=== PATIENT | male | born 1955 | race Caucasian/White ===

== ENCOUNTER 2019-06-08 10:48 | Observation (INO) ==
[2019-06-08] MEDS ORDERED: Aspirin 81 MG TAB.CHEW PO ONE (11:19)
--- NOTE | 2019-06-08 11:21 | Emergency Department Note ---
Disposition Clinical Impression: Chest pain Qualifiers: Chest pain type: unspecified Qualified Code(s): R07.9 - Chest pain, unspecified Disposition: Admitted As Inpatient Condition: Good Referrals: Arun Us MD [Non-Partnered Physician] - Forms: ED Satisfaction Letter Time of Disposition: 12:39 Chest Pain HPI - General Chief Complaint: ED Chest Pain Stated Complaint: Chest Pain Time Seen by Provider: 06/08/19 11:01 Source: patient Mode of arrival: ambulatory Limitations: no limitations Vital Signs Reviewed: Yes Nursing Notes Reviewed: Yes - History of Present Illness HPI Narrative: Patient is a 63-year-old male who is presenting with chest pain. Patient has known history of CAD status post stenting 2 rectally 10 years ago, hypertension, hyperlipidemia and diabetes. Patient states that starting last night around 2029, he began to have pressure in the left side of his chest without radiation, he states that at times this pain is exertional. No positional symptoms. He has had associated nausea without vomiting, no diaphoresis, no associated shortness of breath. He has no leg swelling, history of congestive heart failure. He denies abdominal pain. No recent fevers, cough, chills or sputum production. He states this feels somewhat similar to his chest pain 10 years ago when he required stenting, which was found during a stress test. Severity scale (1-10): 4 - Related Data Allergies Allergy/AdvReac Type Severity Reaction Status Date / Time No Known Allergies Allergy Verified 05/26/15 07:36 All systems ED: reviewed and negative except as stated. Review of Systems: As Per HPI Constitutional: Denies: fever, chills ENT ED: Denies: congestion Cardiovascular: Reports: chest pain. Denies: palpitations, dyspnea on exertion, syncope Respiratory: Denies: cough, dyspnea, wheezes Gastrointestinal: Reports: nausea. Denies: abdominal pain, vomiting, diarrhea Genitourinary: Denies: urgency, dysuria Musculoskeletal: Denies: back pain Integumentary: Denies: rash Neurological: Denies: headache, weakness, confusion Endocrine: Denies: fatigue Chest Pain PMH - Past Medical History Medical history: Reports: diabetes, hyperlipidemia, hypertension, myocardial infarction Psychiatric history: Reports: no psych history - Social History Smoking Status: Former smoker Alcohol use: Reports: none Drug use: Reports: none Physical Exam General: Conversant. No apparent distress. Follow commands. Appears stated age. Neck: No JVD. Trachea midline. Neck supple. Eyes: PERRL. No scleral icterus. HENT: Normocephalic and atraumatic. Moist mucus membranes. Cardiovascular: Regular rate and rhythm. Normal S1 and S2. No murmurs appreciated. Normal capillary refill. Extremities well perfused with 2+ distal pulses bilaterally. No edema. Pulmonary: Normal and equal breath sounds bilaterally, anteriorly and posteriorly. No wheezes, rales, or rhonchi. Not in respiratory distress. Speaks in full sentences. Abdomen: Soft, nondistended, without tenderness. No bruits or masses. No guarding or rebound. Neuro: Alert and oriented x3. No slurred speech. No focal deficits noted. Skin: No rashes noted on visualized skin. Musculoskeletal: No bony abnormalities visualized. Moves all extremities. Psych: Normal mood. Pleasant. Makes appropriate eye contact. - General Limitations: no limitations General appearance: alert, in no apparent distress Course Vital Signs Temperature 98.1 F 06/08/19 10:49 Pulse Rate 69 06/08/19 10:49 Respiratory Rate 18 06/08/19 10:49 Blood Pressure 156/78 06/08/19 10:49 O2 Sat by Pulse Oximetry 91 06/08/19 10:49 Temperature 98.1 F 06/08/19 11:05 Pulse Rate 67 06/08/19 11:40 Respiratory Rate 16 06/08/19 11:40 Blood Pressure 139/79 06/08/19 11:40 O2 Sat by Pulse Oximetry 92 06/08/19 11:40 Oxygen Delivery Oxygen Delivery Room Air Chest Pain - [facility] Narrative Medical decision making narrative: Patient is a 63-year-old male who is presenting with chest pain. No history of CAD status post stenting 2 approximately 2008, hypertension, hyperlipidemia as well as diabetes. On arrival, patient is in no acute distress, states he is having chest pain rated 2 out of 10, to take his baby aspirin this morning. On initial presentation, EKG shows no acute ischemic changes. He was given 2 additional episodes aspirins to equate to 364 mg today. Vital signs otherwise within normal limits. Laboratory work was performed and reviewed with the patient including CBC, BMP and troponin which are all within normal limits. Chest x-ray shows old rib fractures without acute intracardiac or pulmonary proc ess. Patient this point in time as her main stable in the ER. We will be admitting the patient for ACS rule out at this time. Patient was admitted to the hospitalist service by Dr. Magallanes. - Medical Records Medical records reviewed: Yes I reviewed the patient's medical records. - Lab Data Lab results reviewed: Yes I reviewed the patient's lab results. Result diagrams: 06/08/19 11:11 06/08/19 11:11 Lab Results 06/08/19 06/08/19 06/08/19 Range/Units 11:11 11:11 11:11 WBC 10.5 (4.3-11.1) K/mcL RBC 4.46 (4.19-5.50) M/mcL Hgb 12.8 L (12.9-16.9) g/dL Hct 40.8 (37.5-50.1) % MCV 91.5 (83.0-100.0) fL MCH 28.7 (28.0-33.3) pg MCHC 31.4 L (31.6-35.5) g/dL RDW 12.8 (11.5-14.5) % Plt Count 170 (140-400) K/mcL MPV 11.5 (9.4-12.4) fL Immature Gran % 0.6 (0-4) % Seg Neutrophils % 75.3 % Lymphocytes % 11.1 % Monocytes % 12.3 % Eosinophils % 0.3 % Basophils % 0.4 % Neutrophils # 7.9 (1.6-8.9) K/mcL Lymphocytes # 1.2 (0.6-4.6) K/mcL Monocytes # 1.3 (0.0-1.3) K/mcL Eosinophils # 0.0 (0.0-0.6) K/mcL Basophils # 0.0 (0.0-0.2) K/mcL PT 11.4 (9.4-12.1) Seconds INR 1.0 APTT 36.2 H (26.0-36.0) Seconds Sodium 141 (136-145) mEq/L Potassium 4.2 (3.5-5.1) mEq/L Chloride 102 (98-107) mEq/L Carbon Dioxide 29 (23-29) mEq/L BUN 13 (8-23) mg/dL Creatinine 0.74 (0.70-1.30) mg/dL Est GFR ( Amer) > 60 (> 60) Est GFR (Non-Af Amer) > 60 (> 60) BUN/Creatinine Ratio 18 (6-26) Glucose 288 H (70-105) mg/dL Calculated Osmolality 303 H (280-300) Calcium 8.8 (8.6-10.3) mg/dL Troponin I < 0.03 (< 0.04) ng/mL Urine Color (Yellow) Urine Clarity (Clear) Urine pH (5.0-8.0) pH Units Ur Specific [place] (1.010-1.025) Urine Protein (Neg-Trace) mg/dL Urine Glucose (UA) (Normal) mg/dL Urine Ketones (Negative) mg/dL Urine Blood (Negative) Urine Nitrite (Negative) Urine Bilirubin (Negative) Urine Urobilinogen (Normal) mg/dL Ur Leukocyte Esterase (Negative) 06/08/19 Range/Units 12:10 WBC (4.3-11.1) K/mcL RBC (4.19-5.50) M/mcL Hgb (12.9-16.9) g/dL Hct (37.5-50.1) % MCV (83.0-100.0) fL MCH (28.0-33.3) pg MCHC (31.6-35.5) g/dL RDW (11.5-14.5) % Plt Count (140-400) K/mcL MPV (9.4-12.4) fL Immature Gran % (0-4) % Seg Neutrophils % % Lymphocytes % % Monocytes % % Eosinophils % % Basophils % % Neutrophils # (1.6-8.9) K/mcL Lymphocytes # (0.6-4.6) K/mcL Monocytes # (0.0-1.3) K/mcL Eosinophils # (0.0-0.6) K/mcL Basophils # (0.0-0.2) K/mcL PT (9.4-12.1) Seconds INR APTT (26.0-36.0) Seconds Sodium (136-145) mEq/L Potassium (3.5-5.1) mEq/L Chloride (98-107) mEq/L Carbon Dioxide (23-29) mEq/L BUN (8-23) mg/dL Creatinine (0.70-1.30) mg/dL Est GFR ( Amer) (> 60) Est GFR (Non-Af Amer) (> 60) BUN/Creatinine Ratio (6-26) Glucose (70-105) mg/dL Calculated Osmolality (280-300) Calcium (8.6-10.3) mg/dL Troponin I (< 0.04) ng/mL Urine Color Yellow (Yellow) Urine Clarity Clear (Clear) Urine pH 6.0 (5.0-8.0) pH Units Ur Specific [place] > 1.030 H (1.010-1.025) Urine Protein Negative (Neg-Trace) mg/dL Urine Glucose (UA) >=1000 H (Normal) mg/dL Urine Ketones Negative (Negative) mg/dL Urine Blood Negative (Negative) Urine Nitrite Negative (Negative) Urine Bilirubin Negative (Negative) Urine Urobilinogen Normal (Normal) mg/dL Ur Leukocyte Esterase Negative (Negative) - Radiology Data Radiology results reviewed: Yes I reviewed the patient's radiology results. Chest X-Ray 06/08/19 11:45 IMPRESSION: 1. No active pulmonary disease. 2. Old healed left 7th and 8th rib fractures. D/ / Noe Osman MD / Noe Osman MD Interpreting Provider: Noe Osman MD - EKG Data EKG attestation: Yes I reviewed and interpreted this EKG. EKG results narrative: EKG obtained at 1101 with ventricular rate of 67, regular rhythm, borderline left axis deviation, right bundle branch block, no ST segment elevation, depression, Q waves noted in lead 2, 3 and aVF the Q waves are unchanged from old EKG performed in 11/18/2013. Heart Score - Score History: Moderately Suspicious EKG: Non Specific repolarisation Disturbance Age: 45-65 Risk Factors: Equal/Greater than 3 risk factor or history of atherosclerotic disease Troponin: Less than normal limit HEART Score Total: 5
[2019-06-08 11:35] LABS: Basophils % 0.4 %; Eosinophils % 0.3 %; Hematocrit 40.8 % (37.5-50.1); Hemoglobin 12.8 g/dL (12.9-16.9); Immature Granulocytes % 0.6 % (0-4); Lymphocytes # 1.2 K/mcL (0.6-4.6); Lymphocytes % 11.1 %; Mean Corpuscular HGB Conc 31.4 g/dL (31.6-35.5); Mean Corpuscular Hemoglobin 28.7 pg (28.0-33.3); Mean Corpuscular Volume 91.5 fL (83.0-100.0); Mean Platelet Volume 11.5 fL (9.4-12.4); Monocytes # 1.3 K/mcL (0.0-1.3); Monocytes % 12.3 %; Neutrophils # 7.9 K/mcL (1.6-8.9); Platelet Count 170 K/mcL (140-400); Red Blood Count 4.46 M/mcL (4.19-5.50); Red Cell Distribution Width 12.8 % (11.5-14.5); Segmented Neutrophils % 75.3 %; White Blood Count 10.5 K/mcL (4.3-11.1)
[2019-06-08 11:42] LABS: Prothrombin Time 11.4 Seconds (9.4-12.1)
[2019-06-08 11:45] LABS: Activated Partial Thrombo Time 36.2 Seconds (26.0-36.0)
[2019-06-08 12:07] LABS: BUN/Creatinine Ratio 18 (6-26); Blood Urea Nitrogen 13 mg/dL (8-23); Calcium 8.8 mg/dL (8.6-10.3); Carbon Dioxide 29 mEq/L (23-29); Chloride 102 mEq/L (98-107); Glucose 288 mg/dL (70-105); Osmolality,Calculated 303 (280-300); Potassium 4.2 mEq/L (3.5-5.1); Sodium 141 mEq/L (136-145); Troponin I < 0.03 ng/mL (< 0.04); eGFR For African Americans > 60 (> 60); eGFR For Non-African Americans > 60 (> 60)
[2019-06-08 12:28] LABS: Bilirubin,Urine Negative (Negative); Blood,Urine Negative (Negative); Clarity,Urine Clear (Clear); Color,Urine Yellow (Yellow); Glucose,Urine (UA) >=1000 mg/dL (Normal); Ketones,Urine Negative (Negative); Leukocyte Esterase,Urine Negative (Negative); Nitrite,Urine Negative (Negative); Protein,Urine Negative (Neg-Trace); Specific Gravity,Urine > 1.030 (1.010-1.025); Urobilinogen,Urine Normal (Normal)
--- NOTE | 2019-06-08 12:28 | Emergency Department Note ---
Disposition Clinical Impression: Chest pain Qualifiers: Chest pain type: unspecified Qualified Code(s): R07.9 - Chest pain, unspecified Disposition: Admitted As Inpatient Condition: Good Time of Disposition: 12:39 General Adult HPI - General Chief complaint: ED Chest Pain Stated complaint: Chest Pain Time Seen by Provider: 06/08/19 11:01 Source: patient Mode of arrival: ambulatory Limitations: no limitations - History of Present Illness Pain Scale: 4 - Related Data Home Medications Medication Instructions Recorded Confirmed Aspirin 325 mg PO DAILY 06/08/19 06/08/19 Atorvastatin [Lipitor] 40 mg PO HS 06/08/19 06/08/19 Carvedilol [Coreg] 6.25 mg PO BIDWM 06/08/19 06/08/19 Gabapentin [Neurontin] 400 mg PO BID 06/08/19 06/08/19 Glimepiride [Amaryl] 4 mg PO QAM 06/08/19 06/08/19 Insulin Glargine [Lantus] 84 unit SQ HS 06/08/19 06/08/19 Lisinopril [Zestril] 5 mg PO DAILY 06/08/19 06/08/19 metFORMIN [Glucophage] 1,000 mg PO BIDWM 06/08/19 06/08/19 Allergies Allergy/AdvReac Type Severity Reaction Status Date / Time No Known Allergies Allergy Verified 05/26/15 07:36 Constitutional: Denies: fever, chills ENT ED: Denies: congestion Cardiovascular: Reports: chest pain. Denies: palpitations, dyspnea on exertion, syncope Respiratory: Denies: cough, dyspnea, wheezes Gastrointestinal: Reports: nausea. Denies: abdominal pain, vomiting, diarrhea Genitourinary: Denies: urgency, dysuria Musculoskeletal: Denies: back pain Integumentary: Denies: rash Neurological: Denies: headache, weakness, confusion Endocrine: Denies: fatigue Past Medical History - Past Medical History Medical history: Reports: diabetes, hyperlipidemia, hypertension, myocardial infarction Psychiatric history: Reports: no psych history - Social History Smoking Status: Former smoker Smokeless Tobacco Status: No Alcohol use: Reports: none Drug use: Reports: none Physical Exam - General Limitations: no limitations General appearance: alert, in no apparent distress Course Vital Signs Temperature 98.1 F 06/08/19 10:49 Pulse Rate 69 06/08/19 10:49 Respiratory Rate 18 06/08/19 10:49 Blood Pressure 156/78 06/08/19 10:49 O2 Sat by Pulse Oximetry 91 06/08/19 10:49 Temperature 99.2 F 06/08/19 23:11 Pulse Rate 66 06/08/19 23:11 Respiratory Rate 16 06/08/19 23:11 Blood Pressure 133/74 06/08/19 23:11 O2 Sat by Pulse Oximetry 93 06/08/19 23:11 Oxygen Delivery Oxygen Delivery Room Air Medical Decision Making - Lab Data Result diagrams: 06/08/19 11:11 06/08/19 11:11 Lab Results 06/08/19 06/08/19 06/08/19 Range/Units 11:11 11:11 11:11 WBC 10.5 (4.3-11.1) K/mcL RBC 4.46 (4.19-5.50) M/mcL Hgb 12.8 L (12.9-16.9) g/dL Hct 40.8 (37.5-50.1) % MCV 91.5 (83.0-100.0) fL MCH 28.7 (28.0-33.3) pg MCHC 31.4 L (31.6-35.5) g/dL RDW 12.8 (11.5-14.5) % Plt Count 170 (140-400) K/mcL MPV 11.5 (9.4-12.4) fL Immature Gran % 0.6 (0-4) % Seg Neutrophils % 75.3 % Lymphocytes % 11.1 % Monocytes % 12.3 % Eosinophils % 0.3 % Basophils % 0.4 % Neutrophils # 7.9 (1.6-8.9) K/mcL Lymphocytes # 1.2 (0.6-4.6) K/mcL Monocytes # 1.3 (0.0-1.3) K/mcL Eosinophils # 0.0 (0.0-0.6) K/mcL Basophils # 0.0 (0.0-0.2) K/mcL PT 11.4 (9.4-12.1) Seconds INR 1.0 APTT 36.2 H (26.0-36.0) Seconds Sodium 141 (136-145) mEq/L Potassium 4.2 (3.5-5.1) mEq/L Chloride 102 (98-107) mEq/L Carbon Dioxide 29 (23-29) mEq/L BUN 13 (8-23) mg/dL Creatinine 0.74 (0.70-1.30) mg/dL Est GFR ( Amer) > 60 (> 60) Est GFR (Non-Af Amer) > 60 (> 60) BUN/Creatinine Ratio 18 (6-26) Glucose 288 H (70-105) mg/dL Calculated Osmolality 303 H (280-300) Calcium 8.8 (8.6-10.3) mg/dL Troponin I < 0.03 (< 0.04) ng/mL Urine Color (Yellow) Urine Clarity (Clear) Urine pH (5.0-8.0) pH Units Ur Specific [place] (1.010-1.025) Urine Protein (Neg-Trace) mg/dL Urine Glucose (UA) (Normal) mg/dL Urine Ketones (Negative) mg/dL Urine Blood (Negative) Urine Nitrite (Negative) Urine Bilirubin (Negative) Urine Urobilinogen (Normal) mg/dL Ur Leukocyte Esterase (Negative) 06/08/19 Range/Units 12:10 WBC (4.3-11.1) K/mcL RBC (4.19-5.50) M/mcL Hgb (12.9-16.9) g/dL Hct (37.5-50.1) % MCV (83.0-100.0) fL MCH (28.0-33.3) pg MCHC (31.6-35.5) g/dL RDW (11.5-14.5) % Plt Count (140-400) K/mcL MPV (9.4-12.4) fL Immature Gran % (0-4) % Seg Neutrophils % % Lymphocytes % % Monocytes % % Eosinophils % % Basophils % % Neutrophils # (1.6-8.9) K/mcL Lymphocytes # (0.6-4.6) K/mcL Monocytes # (0.0-1.3) K/mcL Eosinophils # (0.0-0.6) K/mcL Basophils # (0.0-0.2) K/mcL PT (9.4-12.1) Seconds INR APTT (26.0-36.0) Seconds Sodium (136-145) mEq/L Potassium (3.5-5.1) mEq/L Chloride (98-107) mEq/L Carbon Dioxide (23-29) mEq/L BUN (8-23) mg/dL Creatinine (0.70-1.30) mg/dL Est GFR ( Amer) (> 60) Est GFR (Non-Af Amer) (> 60) BUN/Creatinine Ratio (6-26) Glucose (70-105) mg/dL Calculated Osmolality (280-300) Calcium (8.6-10.3) mg/dL Troponin I (< 0.04) ng/mL Urine Color Yellow (Yellow) Urine Clarity Clear (Clear) Urine pH 6.0 (5.0-8.0) pH Units Ur Specific [place] > 1.030 H (1.010-1.025) Urine Protein Negative (Neg-Trace) mg/dL Urine Glucose (UA) >=1000 H (Normal) mg/dL Urine Ketones Negative (Negative) mg/dL Urine Blood Negative (Negative) Urine Nitrite Negative (Negative) Urine Bilirubin Negative (Negative) Urine Urobilinogen Normal (Normal) mg/dL Ur Leukocyte Esterase Negative (Negative) Attestation Statement - Attestation Attestation: I examined this patient and my medical decision-making was reviewed with the Resident Physician. I agree with the documented findings, disposition and treatment plan as described except to the extent set forth below. Patient 63-year-old gentleman who presents to the emergency department with chief complaint of chest pain. The patient reports he has prior history of cardiac disease and stated that he started having pain in his chest worse with exertion Physical exam patient is awake alert in no acute distress resting comfortably on the stretcher. Medical decision management EKG showed no evidence of acute ischemic changes initial troponin was negative given the patient's risk factors for cardiac disease patient will be admitted to the hospital for serial cardiac markers I personally supervised and was present for the arias/critical portions of the following procedures completed by the resident:EKG.
--- NOTE | 2019-06-08 14:04 | Electrocardiograph Report ---
[address] [place] [address] Test Date: 2019-06-08 Pat Name: Fitz Gardner Department: [id number] Room: 3B35 Gender: M [employer] Supervisor: : [id number] Requested By: Gwen Taylor Order Number: [id number] Reading MD: Arnulfo Arzola Measurements Intervals [place] Rate: 67 P: 7 FL: 212 QRS: -6 QRSD: 156 T: -15 QT: 440 QTc: 465 Interpretive Statements Sinus rhythm Borderline prolonged FL interval Right bundle branch block Inferior infarct, age indeterminate Electronically Signed On 06-08-2019 14:02:27 EDT by Arnulfo Arzola
[2019-06-08] MEDS ORDERED: Naloxone 0.4 MG/ML INJ IVP PRN (15:36)
[2019-06-08] MEDS ORDERED: Acetaminophen 325 MG TABLET PO PRN (15:36)
[2019-06-08] MEDS ORDERED: Ondansetron 4 MG/2 ML VIAL IVP PRN (15:36)
[2019-06-08] MEDS ORDERED: *HR* HYDROcodone/Acet 5/325 mg TABLET PO PRN (15:36)
[2019-06-08] MEDS ORDERED: Nitroglycerin 0.4 MG TAB.SUBL SL PRN (15:38)
[2019-06-08] MEDS ORDERED: *HR* Dextrose 50 % in Water (Syg) 50 ML SYRINGE IVP PRN (15:40)
[2019-06-08] MEDS ORDERED: Dextrose Gel 15 GM/37.5 ML TUBE PO PRN ×2 (15:40)
[2019-06-08] MEDS ORDERED: D5% in Water 1,000 ML IVC PRN (15:40)
--- NOTE | 2019-06-08 15:45 | Internal Med History&Physical ---
Date of Encounter: 06/08/19 Time of Encounter: 15:45 Internal Medicine - H&P: HPI Chief complaint: Chest pain Admitted From: Emergency Dept Plans for Post Hospital Care: Home History of present illness: Mr. Gardner is a 63 year old male with a known past medical history of hypertension, hyperlipidemia, diabetes and CAD s/p PCI x2 10 yrs ago now he presented to ER with intermittent chest pain located sub sternal and left chest wall region from last 2 days. Patient stated his chest pain is more like pressure, non radiating, 6/10 in severity and associated with some nausea. In the ER his initial troponin was negative. His EKG showed normal sinus rhythm, no acute ST, T changes noticed. He does have incomplete right bundle branch block Past Med Surg Social Fam HX - Past Medical History Medical history: diabetes, hyperlipidemia, hypertension, myocardial infarction Psychiatric history: no psych history - Past Surgical History Additional surgical history: stent x 2 - Social History Smoking Status: Former smoker Smokeless Tobacco Status: No Alcohol use: none Drug use: none - Family History Mother Living Status: Cause of : AR Hx Family Cardiac Disorders: Yes (AR) Hx Family Endocrine Disorder: (DM) Father Living Status: Cause of : MRSA infection Hx Family Respiratory Disorders: Yes (COPD) Internal Medicine - H&P: Meds Aspirin 325 mg PO DAILY 06/08/19 [History] Atorvastatin [Lipitor] 40 mg PO HS 06/08/19 [History] Carvedilol [Coreg] 6.25 mg PO BIDWM 06/08/19 [History] Gabapentin [Neurontin] 400 mg PO BID 06/08/19 [History] Glimepiride [Amaryl] 4 mg PO QAM 06/08/19 [History] Insulin Glargine [Lantus] 84 unit SQ HS 06/08/19 [History] Lisinopril [Zestril] 5 mg PO DAILY 06/08/19 [History] metFORMIN [Glucophage] 1,000 mg PO BIDWM 06/08/19 [History] Allergy/AdvReac Type Severity Reaction Status Date / Time No Known Allergies Allergy Verified 05/26/15 07:36 All Systems PM: A 10-system review of systems was performed and is negative for pertinent findings except as documented above in the HPI. Review of systems: All the systems are reviewed everything is benign except the systems and symptoms I mentioned in the history of present illness - Constitutional Vitals: Temp Pulse Resp BP Pulse Ox 98.2 F 63 16 158/84 93 06/08/19 15:00 06/08/19 15:00 06/08/19 15:00 06/08/19 15:00 06/08/19 15:00 General appearance: Present: cooperative, A&O X 3, no acute distress, answers questions appropriately Exam: a - Head Head exam: Present: atraumatic, normal inspection - Neck Neck exam general surgery: Present: supple - Respiratory Respiratory exam: Present: decreased breath sounds. Absent: rales, respiratory distress, rhonchi, wheezes - Cardiovascular Cardiovascular exam: Present: RRR, +S1, +S2. Absent: tachycardia - GI/Abdominal GI/Abdominal exam: Present: normal bowel sounds, soft. Absent: rebound, rigid, tenderness - Extremities Exam Extremities exam: Present: normal inspection. Absent: calf tenderness, pedal edema, tenderness - Back Exam Back exam: Absent: CVA tenderness (L), CVA tenderness (R) - Neurological Exam Neurological exam: Present: alert, oriented X3 - Psychiatric Psychiatric exam: Present: normal affect, normal mood - Skin Skin exam: Absent: rash Internal Med - H&P Results - Labs CBC & Chem 7: 06/08/19 11:11 06/08/19 11:11 Labs: Short CBC 06/08/19 Range/Units 11:11 WBC 10.5 (4.3-11.1) K/mcL Hgb 12.8 L (12.9-16.9) g/dL Hct 40.8 (37.5-50.1) % Plt Count 170 (140-400) K/mcL Neutrophils # 7.9 (1.6-8.9) K/mcL BMP 06/08/19 11:11 Sodium 141 Potassium 4.2 Chloride 102 Carbon Dioxide 29 BUN 13 Creatinine 0.74 Glucose 288 H Calcium 8.8 Cardiac Enzymes 06/08/19 Range/Units 11:11 Troponin I < 0.03 (< 0.04) ng/mL Urine 06/08/19 Range/Units 12:10 Urine Color Yellow (Yellow) Urine Clarity Clear (Clear) Urine pH 6.0 (5.0-8.0) pH Units Ur Specific [place] > 1.030 H (1.010-1.025) Urine Protein Negative (Neg-Trace) mg/dL Urine Glucose (UA) >=1000 H (Normal) mg/dL - Impressions ITS Impressions Chest X-Ray 06/08/19 11:45 IMPRESSION: 1. No active pulmonary disease. 2. Old healed left 7th and 8th rib fractures. D/ / Noe Osman MD / Noe Osman MD Interpreting Provider: Noe Osman MD - Assessment and Plan (1) Chest pain Current Visit: Yes Status: Acute Assessment and plan: Will admit the pt into Tele for observation Will place pt on quality assurance monitor chassis check serial troponin so far negative troponin EKG reviewed - NSR, incomplete right bundle branch block. No old EKG's to maxine re Cont pt on ASA, Lipitor, BB Coreg and Lisinopril On Nitro PRN for pain Will check FLP in AM Will get stress test in AM since pt is high risk for ACS Qualifiers: Chest pain type: unspecified Qualified Code(s): R07.9 - Chest pain, unspecified (2) CAD (coronary artery disease) Current Visit: Yes Status: Acute Assessment and plan: s/p PCI 10 yrs resumed all home meds Qualifiers: Coronary Disease-Associated Artery/Lesion type: [place] artery [place] vs. transplanted heart: [place] heart Associated angina: without angina Qualified Code(s): I25.10 - Atherosclerotic heart disease of [place] coronary artery without angina pectoris (3) HTN (hypertension) Current Visit: Yes Status: Acute Assessment and plan: stable BP with current home medication Qualifiers: Hypertension type: essential hypertension Qualified Code(s): I10 - Essential (primary) hypertension (4) HLD (hyperlipidemia) Current Visit: Yes Status: Acute Assessment and plan: on Lipitor will check FLP in AM Qualifiers: Hyperlipidemia type: unspecified Qualified Code(s): E78.5 - Hyperlipidemia, unspecified - Time Spent With Patient Total time spent is greater than 50% in coordination of care (as documented) at patient's floor/unit and/or counseling patient:
[2019-06-08] MEDS: Insulin LISPRO 300 UNITS/3 ML VIAL SQ SCH (16:31)
[2019-06-08 17:26] LABS: Estimated Average Glucose 209 mg/dl
[2019-06-08] MEDS: Gabapentin 400 MG CAPSULE PO SCH (20:12)
[2019-06-08] MEDS ORDERED: Insulin LISPRO 300 UNITS/3 ML VIAL SQ SCH (21:00)
[2019-06-09 05:51] LABS: Hematocrit 40.2 % (37.5-50.1); Hemoglobin 12.7 g/dL (12.9-16.9); Mean Corpuscular HGB Conc 31.6 g/dL (31.6-35.5); Mean Corpuscular Hemoglobin 28.9 pg (28.0-33.3); Mean Corpuscular Volume 91.6 fL (83.0-100.0); Mean Platelet Volume 11.9 fL (9.4-12.4); Platelet Count 157 K/mcL (140-400); Red Blood Count 4.39 M/mcL (4.19-5.50); Red Cell Distribution Width 12.7 % (11.5-14.5); White Blood Count 8.7 K/mcL (4.3-11.1)
[2019-06-09 06:15] LABS: BUN/Creatinine Ratio 14 (6-26); Blood Urea Nitrogen 11 mg/dL (8-23); Calcium 8.7 mg/dL (8.6-10.3); Carbon Dioxide 30 mEq/L (23-29); Chloride 103 mEq/L (98-107); Glucose 138 mg/dL (70-105); Osmolality,Calculated 296 (280-300); Potassium 3.9 mEq/L (3.5-5.1); Sodium 142 mEq/L (136-145); eGFR For African Americans > 60 (> 60); eGFR For Non-African Americans > 60 (> 60)
[2019-06-09 06:16] LABS: Chol/HDL Ratio 3.4 (0-4.9)
[2019-06-09] MEDS ORDERED: Regadenoson 0.4 MG/5 ML SYRINGE IVP ONE (06:20)
[2019-06-09] MEDS: Insulin LISPRO 300 UNITS/3 ML VIAL SQ SCH ×2 (07:15→12:42)
[2019-06-09] MEDS ORDERED: Aspirin Enteric Coated 81 MG Tablet PO SCH (09:00)
[2019-06-09] MEDS: Gabapentin 400 MG CAPSULE PO SCH (09:34)
[2019-06-09 11:22] VITALS: BP 121/78
--- NOTE | 2019-06-09 12:33 | Cardiology Consult Note ---
Date of Encounter: 06/09/19 Time of Encounter: 12:33 Assessment and Plan (1) Chest pain Current Visit: Yes Status: Acute 1. Intermittent substernal non-radiating chest pain 6/10 x 2-3 days; No episodes since prior SC x 10 years ago. Currently chest pain free. 2. Troponins negative x 2. 3. EKG reviewed SR borderline prolonged CO interval RBBB, Inferior infarct, age indeterminate consistent with prior history of inferior SC. 4. Discussed and reviewed with the patient and Dr. Stewart; will maximize medical therapy and aggressive risk factor modification. 5. Cardiology will sign off and f/u as outpatient. Qualifiers: Chest pain type: unspecified Qualified Code(s): R07.9 - Chest pain, unspecified (2) Abnormal stress ECG Current Visit: Yes Status: Acute 1. Perfusion imaging negative ischemia. 2. Medium sized, severe intensity fixed perfusion defect involving the basal-mid inferior and inferolateral segments consistent with infarct; Prior history of inferior infarct according to patient. 3. No appreciable change from baseline ECG; Gated EF = 68%. 4. No ischemic changes from baseline. Evidence of old SC consistent with history. Will f/u as outpatient. (3) CAD (coronary artery disease) Current Visit: Yes Status: Chronic Prior [facility] at [facility]; will request records. On ASA, Statin, BB, and ACEI, continue. Qualifiers: Coronary Disease-Associated Artery/Lesion type: [place] artery [place] vs. transplanted heart: [place] heart Associated angina: without angina Qualified Code(s): I25.10 - Atherosclerotic heart disease of [place] coronary artery without angina pectoris Discussion w patient/family: The assessment and plan as outlined above was discussed with the patient and/or family members who expressed understanding and agreement. All questions were answered. Thank you for involving us in the care of your patient. Please call with any questions. History of Present Illness Consult date: 06/09/19 Consult reason: abnormal stress test Chief complaint: chest pain History of present illness: Mr. Gardner is a 63 year old male PMH of HTN, DM, HLD, CAD s/p PCI x 10 years, presented with intermittent sub sternal 6/10 chest pain x 2 days. Described as pressure, with nausea. Denies radiation, SOB, vomiting, diaphoresis, palpitations, edema. Consulted for abnormal stress test; medium sized, severe intensity fixed perfusion defect involving the basal-mid inferior and inferolateral segments consistent with infarct. Past Med Surg Social Fam HX - Past Medical History Attestation: Yes The following information was validated with the patient. Source: patient Medical history: diabetes, hyperlipidemia, hypertension, myocardial infarction Psychiatric history: no psych history - Past Surgical History Additional surgical history: stent x 2 - Social History Smoking Status: Former smoker Smokeless Tobacco Status: No Alcohol use: none Drug use: none - Family History Mother Living Status: Cause of : SC Hx Family Cardiac Disorders: Yes (SC) Hx Family Endocrine Disorder: (DM) Father Living Status: Cause of : MRSA infection Hx Family Respiratory Disorders: Yes (COPD) Medications and Allergies Aspirin 325 mg PO DAILY 06/08/19 [History] Atorvastatin [Lipitor] 40 mg PO HS 06/08/19 [History] Carvedilol [Coreg] 6.25 mg PO BIDWM 06/08/19 [History] Gabapentin [Neurontin] 400 mg PO BID 06/08/19 [History] Glimepiride [Amaryl] 4 mg PO QAM 06/08/19 [History] Insulin Glargine [Lantus] 84 unit SQ HS 06/08/19 [History] Lisinopril [Zestril] 5 mg PO DAILY 06/08/19 [History] metFORMIN [Glucophage] 1,000 mg PO BIDWM 06/08/19 [History] Allergy/AdvReac Type Severity Reaction Status Date / Time No Known Allergies Allergy Verified 05/26/15 07:36 All Systems Review: The remainder of the systems were reviewed and are negative Physical Examination Vital Signs, Last 4 Hours Temp Pulse Resp BP Pulse Ox 06/09/19 11:20 98.6 F 66 17 121/78 90 06/09/19 09:20 98.0 F 62 19 137/70 91 General: Conversant, No Apparent Distress HEENT: Atraumatic, Normocephaly, Mucus Membranes Moist Neck: No JVD, Normal carotid pulses Cardiac: Reg Rate and Rhythm, Normal S1 and S2, No Murmur Lungs: Normal Breath Sounds, No Wheeze, Rales, Rhonchi Neuro: Alert and responsive, No focal deficits noted Abdomen: Soft, Non-Tender Skin: No rashes noted on visualized skin Musculoskeletal: No Chest Wall Tenderness Extremities: No Clubbing, No Cyanosis, No Edema, Normal Pulses Results 06/09/19 05:18 06/09/19 05:18 Lab Results Laboratory Tests 06/09/19 06/09/19 05:18 05:18 Hgb 12.7 L Hct 40.2 BUN 11 Creatinine 0.77 Est GFR (Non-Af Amer) > 60 Laboratory Tests 06/08/19 06/08/19 06/08/19 11:11 17:04 23:02 Troponin I < 0.03 < 0.03 0.03 Active Medications Acetaminophen (Tylenol) 650 mg PO Q6HR PRN PRN Reason: Mild Pain/Fever Stop: 12/08/19 15:37 Hydrocodone Bitart/Acetaminophen ([place] 5-325 Mg) 1 tab PO Q6HR PRN PRN Reason: Moderate Pain Stop: 12/08/19 15:37 Aspirin (Aspirin Ec) 81 mg PO DAILY [facility] Stop: 12/09/19 09:01 Last Admin: 06/09/19 09:34 Dose: 81 mg Documented by: Atorvastatin Calcium (Lipitor) 40 mg PO HS [facility] Stop: 12/08/19 21:01 Last Admin: 06/08/19 20:12 Dose: 40 mg Documented by: Carvedilol (Coreg) 6.25 mg PO BIDWM [facility]; Protocol Stop: 12/08/19 17:01 Last Admin: 06/09/19 09:34 Dose: 6.25 mg Documented by: Dextrose/Water (Dextrose 50% (Syg)) 25 ml IVP AD PRN PRN Reason: Hypoglycemia Stop: 12/08/19 15:41 Docusate Sodium (Colace) 100 mg PO BID PRN PRN Reason: Constipation Stop: 12/08/19 21:01 Gabapentin (Neurontin) 400 mg PO BID [facility] Stop: 12/08/19 21:01 Last Admin: 06/09/19 09:34 Dose: 400 mg Documented by: Glucagon (Glucagen) 1 mg IM ONCE PRN PRN Reason: Hypoglycemia Stop: 12/08/19 15:41 Glucose (Gluctose) 15 gm PO ONCE PRN PRN Reason: Hypoglycemia Stop: 12/08/19 15:41 Glucose (Gluctose) 30 gm PO ONCE PRN PRN Reason: Hypoglycemia Stop: 12/08/19 15:41 Dextrose (Dextrose 5%) 1,000 mls @ 100 mls/hr IVC .Q10H PRN PRN Reason: HYPOGLYCEMIA Stop: 12/08/19 15:41 Insulin Human Lispro (Humalog) 0 units SQ HS [facility]; Protocol Stop: 12/08/19 21:01 Last Admin: 06/08/19 20:17 Dose: Not Given Documented by: Insulin Human Lispro (Humalog) 0 units SQ TIDAC [facility]; Protocol Stop: 12/08/19 16:31 Last Admin: 06/09/19 07:15 Dose: Not Given Documented by: Lisinopril (Zestril) 5 mg PO DAILY [facility]; Protocol Stop: 12/09/19 09:01 Last Admin: 06/09/19 09:34 Dose: 5 mg Documented by: Naloxone HCl (Narcan) 0.4 mg IVP Q2MPRN PRN PRN Reason: SEE COMMENTS Stop: 12/08/19 15:37 Nitroglycerin (Nitroglycerin) 0.4 mg SL Q5MPRN PRN PRN Reason: Chest Pain Stop: 12/08/19 15:39 Ondansetron HCl (Zofran) 4 mg IVP Q8HR PRN PRN Reason: Nausea And Vomiting Stop: 12/08/19 15:37 - Imaging and Cardiology Stress Test: report reviewed - EKG Interpretation EKG results cardiology: no diagnostic ischemia Consult Discharge Plan - Plan Referrals: Arun Us MD [Primary Care Provider] -
--- NOTE | 2019-06-09 15:07 | Discharge Summary ---
- NOTES TO OUTPATIENT PROVIDER Notes to Outpatient Provider: f/u with PCP in one week. f/u with Cardiology in 1-2 weeks. Date of Encounter: 06/09/19 Time of Encounter: 14:56 - Discharge Diagnosis (1) Chest pain Priority: Primary Status: Acute Qualifiers: Chest pain type: unspecified Qualified Code(s): R07.9 - Chest pain, unspecified (2) Abnormal stress ECG Priority: Primary Status: Acute (3) CAD (coronary artery disease) Priority: Secondary Status: Chronic Qualifiers: Coronary Disease-Associated Artery/Lesion type: [place] artery [place] vs. transplanted heart: [place] heart Associated angina: without angina Qualified Code(s): I25.10 - Atherosclerotic heart disease of [place] coronary artery without angina pectoris (4) HTN (hypertension) Priority: Secondary Status: Acute Qualifiers: Hypertension type: essential hypertension Qualified Code(s): I10 - Essential (primary) hypertension (5) HLD (hyperlipidemia) Priority: Secondary Status: Acute Qualifiers: Hyperlipidemia type: unspecified Qualified Code(s): E78.5 - Hyperlipidemia, unspecified Hospital course: Mr. Gardner is a 63 year old male with a known past medical history of hypertension, hyperlipidemia, diabetes and CAD s/p PCI x2 10 yrs ago now he presented to ER with intermittent chest pain located sub sternal and left chest wall region from last 2 days. Patient stated his chest pain is more like pressure, non radiating, 6/10 in severity and associated with some nausea. In the ER his initial troponin was negative. His EKG showed normal sinus rhythm, no acute ST, T changes noticed. He does have incomplete right bundle branch block. 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 His serial troponin were negative. His EKG did not show any acute ishcemic changes. His stress test came back as Medium sized, severe intensity fixed perfusion defect involving the basal-mid inferior and inferolateral segments consistent with infarct which could be consistent with his previous SD. Cardiology did evaluate the pt and recommend to continue ASA, Coreg, Lisinopril and statin. Also recommend out pt f/u with cardiology. Pt is in agreeable to this plan. He denied any CP since he got admitted in the hospital. So will discharge him home in a stable condition today. - Time Spent with Patient Total time spent providing and/or coordinating discharge services: - Discharge Medications Prescriptions: New Nitroglycerin 0.4 mg SL Q5MPRN PRN #15 tab.subl PRN Reason: Chest Pain Continued Aspirin 325 mg PO DAILY metFORMIN [Glucophage] 1,000 mg PO BIDWM Insulin Glargine [Lantus] 84 unit SQ HS Gabapentin [Neurontin] 400 mg PO BID Atorvastatin [Lipitor] 40 mg PO HS Glimepiride [Amaryl] 4 mg PO QAM Carvedilol [Coreg] 6.25 mg PO BIDWM Lisinopril [Zestril] 5 mg PO DAILY Home Medications: Aspirin 325 mg PO DAILY 06/08/19 [History] Atorvastatin [Lipitor] 40 mg PO HS 06/08/19 [History] Carvedilol [Coreg] 6.25 mg PO BIDWM 06/08/19 [History] Gabapentin [Neurontin] 400 mg PO BID 06/08/19 [History] Glimepiride [Amaryl] 4 mg PO QAM 06/08/19 [History] Insulin Glargine [Lantus] 84 unit SQ HS 06/08/19 [History] Lisinopril [Zestril] 5 mg PO DAILY 06/08/19 [History] metFORMIN [Glucophage] 1,000 mg PO BIDWM 06/08/19 [History] Nitroglycerin 0.4 mg SL Q5MPRN PRN #15 tab.subl 06/09/19 [Rx] Allergies/Adverse Reactions: Allergy/AdvReac Type Severity Reaction Status Date / Time No Known Allergies Allergy Verified 05/26/15 07:36 Date of admission: 06/08/19 13:03 Primary care physician: Arun Us MD Consults: 06/09/19 11:58 Consult to Cardiology [CONS] Routine Comment: Consulting Provider: [facility] [place] Reason for Consult: Abnormal stress test Time Notified: 11:58 Call Completed: Yes - Constitutional Vitals: Temp Pulse Resp BP Pulse Ox 98.6 F 66 17 121/78 90 06/09/19 11:20 06/09/19 11:20 06/09/19 11:20 06/09/19 11:20 06/09/19 11:20 General appearance: Present: cooperative, A&O X 3, no acute distress, answers questions appropriately Exam: Gen: Alert, awake, Oriented to time,place and person Chest: Diminished breath sounds B/L, No wheezing, No crackles, No rales Heart: S1S2+ RRR No murmurs Abd: Soft, NT, BS +, No organomegaly Ext: No edema, pulses are palpable, No calf tenderness Neuro : No acute focal neuro deficits noticed Skin: No rash. - Patient Status Disposition: Home, Self-Care Condition: Good Overall status at discharge: patient is back to baseline - Discharge Instructions Follow Up With: Arun Us MD [Primary Care Provider] - - Diet and Activity Activity: increase activity as tolerated Diet: low salt diet
== END 2019-06-09 15:30 | disposition home or self-care (01) ==
LOC: 3BNU 10:48 → EMEROOARM 10:48 → SUATTDRO 13:03 → 3BNU 13:45
PROVIDERS: ADMIT Internal Medicine; ATTEND Family Medicine